=== PATIENT | male | born 1935 | race Caucasian/White ===

== ENCOUNTER 2018-04-13 11:59 | Inpatient (IN) | payer OTHER, MEDICAID ==
[~2018-04-13] VITALS: Ht 167.6 cm; Wt 62.3 kg
[2018-04-13 12:13] VITALS: Ht 167.6 cm; Wt 62.3 kg
[2018-04-13 12:44] LABS: BASOPHIL % 0.5 % (0-2); PLATELET COUNT 188 x10^3mcL (130-400); RED CELL DISTRIBUTION WIDTH 13.6 % (11.5-14.5)
[2018-04-13 13:01] LABS: CALCIUM 8.5 mg/dL (8.5-10.1); CARBON DIOXIDE 27.1 mmol/L (21-32); CHLORIDE SERUM 101 mmol/L (98-107); GLUCOSE SERUM 121 mg/dL (74-106); POTASSIUM SERUM 3.9 mmol/L (3.5-5.1); SODIUM SERUM 136 mmol/L (136-145)
[2018-04-13 13:06] LABS: ALBUMIN 3.8 g/dL (3.4-5.0); ALKALINE PHOSPHATASE 109 U/L (46-116); ALT/SGPT 29 U/L (16-63); AST/SGOT 20 U/L (15-37); BILIRUBIN TOTAL 0.5 mg/dL (0.20-1.00); CHOLESTEROL 187 mg/dL (<200); HDL CHOLESTEROL 55 mg/dL (40-60); PHOSPHOROUS 3.7 mg/dL (2.5-4.9); TOTAL PROTEIN, SERUM 7.5 g/dL (6.4-8.2); URIC ACID 6.6 mg/dL (3.5-7.2)
[2018-04-13 16:32] LABS: CHOLESTEROL/HDL RATIO 3.5
[2018-04-13 16:38] VITALS: BP 165/74
[2018-04-13 16:39] LABS: T3 TOTAL 1.19 ng/mL
[2018-04-13 16:40] LABS: FREE T4 1.03 ng/dL (0.76-1.46); FREE THYROXINE INDEX 2.9 ug/dL (1.4-4.5)
[2018-04-13 21:22] VITALS: BP 145/70
[2018-04-14] MEDS ORDERED: MELOXICAM15 M1 PO (04:29)
[2018-04-14] MEDS ORDERED: ALLOPURINOL100 MG PO (04:29)
[2018-04-14] MEDS ORDERED: BENAZEPRIL HYDR20 M1 PO (04:29)
[2018-04-14] MEDS ORDERED: PANTOPRAZOLE SO40 M1 PO (04:29)
[2018-04-14] MEDS ORDERED: HYDROCHLOROTH12.5 M3 PO (04:30)
[2018-04-14] MEDS ORDERED: TAMSULOSIN HYD0.4 M1 PO (04:30)
[2018-04-14] MEDS ORDERED: BACLOFEN20 MG PO (04:31)
[2018-04-14] MEDS ORDERED: VITAMIN D32000 I2 PO (04:31)
[2018-04-14 05:40] VITALS: BP 158/75
[2018-04-14 06:58] LABS: BASOPHIL % 0.5 % (0-2); PLATELET COUNT 186 x10^3mcL (130-400); RED CELL DISTRIBUTION WIDTH 13.9 % (11.5-14.5)
[2018-04-14 07:11] LABS: CARBON DIOXIDE 27.6 mmol/L (21-32); CHLORIDE SERUM 104 mmol/L (98-107); CREATININE SERUM 0.9 mg/dL (0.7-1.3); GLUCOSE SERUM 109 mg/dL (74-106); MAGNESIUM 2.1 mg/dL (1.8-2.4); POTASSIUM SERUM 3.8 mmol/L (3.5-5.1); SODIUM SERUM 138 mmol/L (136-145)
[2018-04-14 09:03] VITALS: BP 142/71
[2018-04-14 09:29] LABS: microscopic required? NO
[2018-04-14 09:38] LABS: urine erythrocyte NEGATIVE (NEGATIVE)
[2018-04-14 13:00] VITALS: BP 164/74
[2018-04-14 17:02] VITALS: BP 164/74
== END 2018-04-14 18:05 | disposition home or self-care (01) | DRG 74 ==
LOC: ED 11:59 → DU 14:44
PROVIDERS: Emergency Medicine; Internal Medicine
DX: G90.8 Other disorders of autonomic nervous system (principal); G45.0 Vertebro-basilar artery syndrome; M06.9 Rheumatoid arthritis, unspecified; I10 Essential (primary) hypertension; N40.0 Benign prostatic hyperplasia without lower urinary tract symptoms; M10.9 Gout, unspecified; E78.5 Hyperlipidemia, unspecified; Z66 Do not resuscitate; Z68.25 Body mass index [BMI] 25.0-25.9, adult
CPT/HCPCS: 83880; 84439; J1885; J7030; Q0092